=== PATIENT | female | born 1985 | race Hispanic/Latino ===

== ENCOUNTER → 2020-04-05 | Day surgery (SDC) | payer BC ==
[2020-03-31 12:06] LABS: BASOPHILS # (AUTO) 0.1 (0.0-0.1); BASOPHILS % 0.6 % (0.0-1.0); EOSINOPHILS # (AUTO) 0.1 (0.0-0.4); EOSINOPHILS % 0.8 % (0.0-6.0); HEMOGLOBIN 11.7 g/dL (12.0-16.0); LYMPHOCYTES # (AUTO) 1.8 (1.0-3.2); LYMPHOCYTES % 20.1 % (18.0-39.1); MEAN CORPUSCULAR HEMOGLOBIN 24.4 pg (28-32); MEAN CORPUSCULAR VOLUME 81.3 fL (81-99); MONOCYTES # (AUTO) 0.6 (0.2-0.8); MONOCYTES % 6.3 % (4.4-11.3); NEUTROPHILS # (AUTO) 6.4 (2.1-6.9); NEUTROPHILS % 71.9 % (38.7-80.0); PLATELET COUNT 320 x10e3/uL (140-360); RED CELL DISTRIBUTION WIDTH 15.3 % (11.7-14.4)
[~2020-04-05] MED LIST: ACETAMINOPHEN/CODEINE 300MG - 30MG TAB ONE; BUPIVACAINE 0.25% 30ML SDV ONE; DEXAMETHASONE SOD PHOS INJ 4 MG/ML VIAL ONE; FENTANYL CITRATE/PF 100MCG/2 ML INJ ONE; HYDROMORPHONE 1MG/1ML INJ ONE; KETOROLAC TROMETHAMINE 30 MG/ML VIAL ONE; LIDOCAINE HCL 2% LOCAL INJ 5 ML SDV VIAL INJ ONE; MIDAZOLAM HCL 2 MG/2 ML VIAL ONE; ONDANSETRON HCL INJ 2MG/ML 2ML 2 MG/ML VIAL ONE; PROPOFOL IV EMULSION 10 MG/ML 20 ML VIAL ONE; ROCURONIUM BROMIDE 10 MG/ML 5ML VIAL IV ONE; SEVOFLURANE INHAL SOLN 250 ML PEN BTL ONE; SUGAMMADEX SODIUM 200 MG/2 ML VIAL IV ONE
[2020-04-05 09:45] VITALS: BP 104/69
== END | disposition home or self-care (01) ==
LOC: OR 05:27
PROVIDERS: ATTEND Obstetrics & Gynecology
DX: Z30.2 Encounter for sterilization (principal); Z01.812 Encounter for preprocedural laboratory examination; Z20.828 Contact with and (suspected) exposure to other viral communicable diseases
CPT/HCPCS: 36415; 58661; 81025; 84702; 85025; 88304; J1100; J1170; J1885; J2001; J2250; J2405; J2704; J3010; U0002

== ENCOUNTER 2022-08-31 10:15 | Emergency (ER) | payer BC ==
[~2022-08-31] VITALS: Ht 157.5 cm; Wt 77.1 kg
[2022-08-31] MEDS ORDERED: CLINDAMYCIN HC300 MG PO (10:55)
[2022-08-31] MEDS ORDERED: METRONIDAZOLE500 MG PO (10:58)
== END 2022-08-31 11:09 | disposition home or self-care (01) ==
LOC: FSED 10:19
DX: R10.30 Lower abdominal pain, unspecified (principal); T19.2XXA Foreign body in vulva and vagina, initial encounter
CPT/HCPCS: 81003; 81025; 99283